=== PATIENT | female | born 1970 | race American Indian/Alaskan Native ===

== ENCOUNTER 2016-05-11 10:42 | Day surgery (SDC) | payer BC ==
[~2016-05-11 10:42] MED LIST: WATER FOR IRRIG STERILE IR ONE; XYLOCAINE MPF 2% ONE
[2016-05-11] MEDS ORDERED: DIPRIVAN 10 MG/ML IV ONE ×2 (11:49→11:50)
[2016-05-11] MEDS ORDERED: NACL 0.9% 1000 ML 1,000 ML IV SCH (12:00)
--- NOTE | 2016-05-11 12:30 | Short Stay Summary ---
Short Stay Documentation Date of service: 05/11/16 - History H&P: obtained from office - Allergies and Medications Current Medications: Allergies shellfish derived Allergy (Verified 03/16/13 16:04) Anaphylaxis Iodinated Contrast Media - IV Dye Adverse Reaction (Intermediate, Verified 05/11 11:32) Swelling Home Medications Medication Instructions Recorded Confirmed Last Taken Type Levothyroxine Sodium [Synthroid] 88 mcg PO DAILY 03/16/13 05/11/16 05/11/16 History Ondansetron [Zofran] 4 mg PO Q6HR PRN #12 tablet 03/16/13 05/06/16 Unknown Rx Spironolactone [Spironolactone] 100 mg PO BID 03/16/13 05/11/16 05/10/16 History metFORMIN XR [Glucophage XR] 1,000 mg PO BID 03/16/13 05/11/16 05/08/16 History ALBUTEROL Inhaler [ProAir HFA 8.5 gram INHALATION PRN PRN 05/06/16 05/06/16 Unknown History Inhaler] Losartan 10 mg PO DAILY 05/06/16 05/11/16 05/08/16 History Active Medications Sodium Chloride (Nacl 0.9% 1000 Ml) 1,000 mls @ 50 mls/hr IV DIRECT JAK Last Admin: 05/11/16 11:33 Dose: 50 mls/hr - Brief post op/procedure progress note Date of procedure: 05/11/16 Pre-op diagnosis: Screening Post-op diagnosis: other (Normal) Procedure: Colonoscopy Anesthesia: MAC Findings: Normal Surgeon: MIYA GARNER Estimated blood loss: none Pathology: none Condition: stable - Disposition Condition at discharge: Good Disposition: DISCHARGED TO HOME OR SELFCARE Short Stay Discharge Plan Activity: no restrictions Diet: regular
--- NOTE | 2016-05-11 12:31 | Anesthesia Day of Surgery ---
Anesthesia Day of Surgery - Day of Surgery Patient Examined: Yes Patient H&P Reviewed: Yes Patient is NPO: Yes
--- NOTE | 2016-05-11 12:31 | Anesthesia Consultation ---
Anesthesia Consult and Med Hx Date of service: 05/11/16 - Airway Anesthetic Teeth Evaluation: Good ROM Head & Neck: Adequate Mental/Hyoid Distance: Adequate Mallampati Class: Class I Intubation Access Assessment: Good - Pulmonary Exam CTA: Yes - Cardiac Exam Cardiac Exam: RRR - Pre-Operative Health Status ASA Pre-Surgery Classification: ASA2 Proposed Anesthetic Plan: MAC - Pulmonary Hx Asthma: Yes - Cardiovascular System Hx Hypertension: Yes - Central Nervous System Hx Neuromuscular Disorder: No Hx Psychiatric Problems: No - Gastrointestinal Hx Gastroesophageal Reflux Disease: No - Endocrine Hx Thyroid Disease: Yes Hx Hypothyroidism: Yes - Hematic Hx Anemia: No Hx Sickle Cell Disease: No - Other Systems Hx Alcohol Use: No Hx Substance Use: No Hx Cancer: No Hx Obesity: No
[2016-05-11 12:46] VITALS: BP 120/71
--- NOTE | 2016-05-11 13:39 | Operative Report ---
PROCEDURE: Colonoscopy. PREOPERATIVE DIAGNOSIS: Screening. POSTOPERATIVE DIAGNOSIS: Normal exam. SEDATION: MAC by Anesthesia. 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 DESCRIPTION OF PROCEDURE: Indications, risks, and benefits were explained and consent was obtained. The patient was placed in left lateral decubitus position and sedated. [employer] video colonoscope was passed through the rectum after digital exam digital examination and passed with moderate to significant difficulty to the cecum, which was identified by the ileocecal valve. Scope was then gradually withdrawn with close inspection of mucosa. Prep was good. Procedure was difficult due to tortuosity and angulation. FINDINGS: Visualized colonic mucosa was normal appearing, though the colon was tortuous. The patient tolerated the procedure well without immediate complications. IMPRESSION: Normal, albeit tortuous colon. RECOMMENDATION: 1. High fiber diet. 2. Repeat colonoscopy for screening in 10 years. JOB# [id number] HRC/NTS
--- NOTE | 2016-05-11 14:26 | Post Anesthesia Evaluation ---
- Post Anesthesia Evaluation Patient Participated: Yes Airway Patent: Yes Stable Respiratory Function: Yes Nausea/Vomiting: No Temp > 96.8F: Yes Pain Manageable: Yes Adequeate Hydration: Yes Anesthesia Complications: No Block Receding Appropriately: Not Applicable Patient on Ventilator: No
== END 2016-05-11 10:43 | disposition home or self-care (01) ==
LOC: GIO 10:42
PROVIDERS: ATTEND Internal Medicine Gastroenterology
DX: K63.89 Other specified diseases of intestine (principal); J45.909 Unspecified asthma, uncomplicated; I10 Essential (primary) hypertension; E03.9 Hypothyroidism, unspecified; E78.5 Hyperlipidemia, unspecified; E28.2 Polycystic ovarian syndrome; Z90.710 Acquired absence of both cervix and uterus; Z98.890 Other specified postprocedural states
CPT/HCPCS: 45378; J2704; J7030